=== PATIENT | female | born 1995 | race Caucasian/White ===

== ENCOUNTER 2016-12-29 21:25 | Emergency (ER) | payer OTHER ==
[~2016-12-29] VITALS: Ht 160 cm; Wt 103.6 kg
[2016-12-29 21:28] VITALS: TEMP 36.7; Ht 160 cm; Wt 103.6 kg
[2016-12-29] MEDS ORDERED: ACET-1256 PO (21:35)
[2016-12-29] MEDS ORDERED: NORCO 5/325MG HOME PACK PO ONE (22:30)
[2016-12-29] MEDS ORDERED: CLOTRIMAZOLE 1% CR 15 GM TUBE EXT ONE (22:30)
--- NOTE | 2016-12-29 22:36 | EMERGENCY ROOM VISIT NOTE ---
History First contact with patient: 21:31 Chief Complaint: EAR PAIN Stated Complaint: CANT HEAR OUT EARS History of Present Illness The patient is a 21 year old female who presents to the Emergency Room with complaints of bilateral ear pain and difficulty hearing. The patient states that she has been having ear problems for a few weeks. She was seen at a walk- in clinic 2 weeks ago and given an antibiotic and ear drops. She states that she used them but had continued symptoms. She was again seen by the walk-in clinic 2 days ago and told that she had mold in her ears and was scheduled for an appointment with ENT. They did not put her on any other medications. She's been taking Tylenol and Advil without relief. She rates her discomfort a 10/ 10. She reports difficulty hearing in both of the ears. She denies any fevers/ chills or sore throat. Review of Systems A complete 10 point review of systems was reviewed with the patient with pertinent positives and negatives as per history of present illness. All else were negative. Social History Smoking Status: Current Some Day Smoker Current/Historical Medications Scheduled PRN Acetaminophen (Tylenol), 1,000 MG PO DIRECTED PRN for Pain Physical Exam Vital Signs Date Time Temp Pulse Resp B/P (MAP) Pulse Ox O2 Delivery O2 Flow Rate FiO2 12/29/16 22:47 77 18 110/74 97 12/29/16 21:28 36.7 88 18 112/75 96 Room Air Physical Exam VITALS: Vitals are noted on the nurse's note and reviewed by myself. Vital signs stable. GENERAL: This is a 21-year-old female, in no acute distress, nondiaphoretic, well-developed well-nourished. EARS: There is a white, fuzzy material with multiple black specks present in bilateral ear canals. This is consistent with fungal infection. EYES: Pupils equal round and reactive to light and accommodation. Conjunctivae without injection, sclerae without icterus. NOSE: Patent, turbinates without inflammation or discharge. MOUTH: Mucous membranes moist. Tonsils are not enlarged. Pharynx without erythema or exudate. NECK: Supple without nuchal rigidity. No lymphadenopathy. NEURO: Patient was alert and oriented to person place and time. Medical Decision & Procedures Medications Administered Medications (Trade) Dose Ordered Sig/Hernando Route Start Time Stop Time Status Last Admin Dose Admin Clotrimazole (Lotrimin 1% Crm) 1 appln NOW ONCE EXT 12/29/16 22:30 12/29/16 22:31 DC 12/29/16 22:33 1 APPLN Acetaminophen/ Hydrocodone Bitart (Marston 5/325mg Home Pack) 1 homepack UD ONCE PO 12/29/16 22:30 12/29/16 22:31 DC 12/29/16 22:46 1 HOMEPACK Medical Decision Differential diagnosis includes otitis media, otitis externa, otomycosis, eustachian tube dysfunction, among others. The patient was evaluated as above. Her physical exam is consistent with bilateral otomycosis. She has an upcoming appointment with ENT and they feel that they are better suited to clean the ear canals. The patient was given clotrimazole cream to apply to the ear canals twice daily until she see them. She was complaining of pain and was given a home pack of Marston for pain until she is able to see ENT. She verbalized understanding of my assessment and treatment plan and was discharged home in good condition. Medication Reconcilliation Current Medication List: was personally reviewed by me Blood Pressure Screening Patient's blood pressure: Normal blood pressure Impression Primary Impression: Otomycosis Departure Information Dispostion Home / Self-Care Condition GOOD Referrals Soha Dawson, C.R.N.P. (PCP) Patient Instructions My [facility] Additional Instructions Apply the clotrimazole cream to the ear canals with a Q-tip twice daily. You have been given Marston to be used for pain control. Take 1-2 tablets every 4 -6 hours as needed for pain. This is a narcotic medication. You cannot drive or consume alcohol while on this medicine. This medicine should only be used for pain that cannot be controlled with [id number]-[id number] pain medicines. For pain control, you can use the following dtie-zbt-qcdlmty medicines (if >12 yo): - Regular strength (325mg/tab) Tylenol (acetaminophen) 2 tabs every 4-6 hours as needed. Do not exceed 12 tablets in a 24 hour period. Avoid taking more than 4 grams (4000 mg) of Tylenol per day. This includes any other sources of acetaminophen you may take on a regular basis. - Regular strength (200 mg/tab) Advil (ibuprofen) 1-2 tabs every 4-6 hours as needed. Do not exceed a dose of 3200 mg per day. Follow-up with ENT on Saturday as scheduled.
[2016-12-29 22:47] VITALS: BP 110/74; PULSE 77; O2SAT 97
== END 2016-12-29 22:48 | disposition home or self-care (01) ==
LOC: C.EDB 21:26 → C.EDD 22:48
DX: B36.9 Superficial mycosis, unspecified (principal); H62.40 Otitis externa in other diseases classified elsewhere, unspecified ear; F17.210 Nicotine dependence, cigarettes, uncomplicated

== ENCOUNTER → 2017-01-01 | Outpatient (CLI) | payer OTHER ==
[~2017-01-01] MED LIST: ACET-1256 PO
== END | disposition home or self-care (01) ==
LOC: C.LABSPEC 12:31
PROVIDERS: ATTEND Nurse Practitioner
DX: R31.9 Hematuria, unspecified (principal)

== ENCOUNTER 2017-09-17 20:10 | Emergency (ER) | payer SELFPAY ==
[~2017-09-17] VITALS: Ht 160 cm; Wt 114.8 kg
[2017-09-17 20:26] VITALS: TEMP 36.8; Ht 160 cm; Wt 114.8 kg
[2017-09-17] MEDS ORDERED: AMOXICILLIN 500 MG CAP PO STA (21:50)
[2017-09-17] MEDS ORDERED: AMOXICILLIN 250 MG CAP PO STA (21:50)
[2017-09-17] MEDS ORDERED: AMX500 PO (21:53)
--- NOTE | 2017-09-17 21:55 | EMERGENCY ROOM VISIT NOTE ---
History First contact with patient: 20:37 Chief Complaint: EAR PAIN Stated Complaint: EAR/HEAD PAIN History of Present Illness The patient is a 21 year old female who presents to the Emergency Room via private vehicle with complaints of "ears/head pain". The patient states that she has a history of ear troubles. She states that last year she was seen for otitis externa and was given eardrops at that time and this progressed then to a fungal infection in the ear. She states that this prompted her to visit an ear nose and throat doctor. She states that recently, she has been experiencing right-sided ear pain for the past few days and now has progressed also to the left ear. She describes the pain as continuous, she rates the pain as an 8/10. She also notes decreased hearing. There is minimal tenderness and dizziness. She states that it progressed to the left ear beginning today. There is no nausea, vomiting, fevers or chills. She states that on Saturday she had a fever of 102F. She points to the inner ear as a location of pain as well as just behind the ear. This spares the mastoid. She denies any recent antibiotics, myringotomy tube recently. She notes that she uses Q-tips. Review of Systems A complete 6-point Review of Systems was discussed with the patient, with pertinent positives and negatives listed in the History of Present Illness. All remaining Review of Systems questions can be considered negative unless otherwise specified. Past Medical/Surgical History Fungal otitis externa Family History Noncontributory. Social History Smoking Status: Current Some Day Smoker Patient lives locally. Current/Historical Medications Scheduled Amoxicillin (Amoxicillin), 500 MG PO TID Scheduled PRN Acetaminophen (Tylenol), 1,000 MG PO DIRECTED PRN for Pain Physical Exam Vital Signs Date Time Temp Pulse Resp B/P (MAP) Pulse Ox O2 Delivery O2 Flow Rate FiO2 09/17/17 22:12 84 22 126/69 98 09/17/17 20:26 36.8 86 20 152/82 98 Room Air Physical Exam VITAL SIGNS - Vital signs and nursing notes were reviewed. Stable. Afebrile. GENERAL -21-year-old female appearing her stated age who is in no acute distress. Communicates well with provider and answers questions appropriately. SKIN - Without rashes. No meningeal or petechial rash. The skin overlying the ears under overlying the mastoid region is unremarkable bilaterally. HEAD - NC/AT. EYES - PERRL with EOMI bilaterally. Sclera anicteric. EARS - No deformities of external structures noted on gross examination bilaterally. There is pain elicited with palpation of the tragus bilaterally. External auditory canals without discharge or otorrhea. The ear canals bilaterally are erythematous and slightly down bilaterally are slightly bulging. They are slightly erythematous. No rupture. No evidence of fungal infection. No cerumen impaction. There is only a minimal amount of dependent cerumen in the ear canals which I do not suspect to be significant. NOSE - Midline and without cyanosis. No epistaxis or purulent drainage noted. MOUTH/OROPHARYNX - Without perioral cyanosis. Buccal mucosa pink and moist and without leukoplakia. Tongue midline with equal elevation of palate bilaterally. No tonsillar hypertrophy, erythema, or exudates noted. [] dentition noted. NECK - Neck with FROM. Supple to palpation. No lymphadenopathy noted.. No nuchal rigidity. Medical Decision & Procedures Medications Administered Medications (Trade) Dose Ordered Sig/Hernando Route Start Time Stop Time Status Last Admin Dose Admin Amoxicillin (Amoxil Cap) 500 mg NOW STAT PO 09/17/17 21:50 09/17/17 21:51 DC 09/17/17 22:12 500 MG Amoxicillin (Amoxil Cap) 500 mg NOW STAT PO 09/17/17 21:50 09/17/17 21:51 DC 09/17/17 22:12 500 MG Medical Decision Patient was seen and evaluated as above in room D5. Review was performed of nursing notes and vital signs. After obtaining a thorough history and physical examination the above work up was performed. She presents to us today with bilateral ear pain. She is nontoxic on exam. On exam there is evidence of bilateral otitis externa. There is also what appears to be beginning otitis media. She was offered eardrops for the otitis externa but declined noting that she had poor outcome in the past. She notes that she will use the oral antibiotics. She will be given amoxicillin. She is to follow with ear nose and throat secondary to history for further evaluation and management or return with worsening. The patient was educated upon management, had questions answered prior to discharge, and was discharged home in good condition. In the evaluation and treatment of this patient the following differential diagnoses were entertained: Otitis media, externa, fungal infection, TM rupture , effusion, eustachian tube dysfunction, among others. Impression Primary Impression: Acute pain of both ears Departure Information Dispostion Home / Self-Care Condition GOOD Prescriptions Amoxicillin (Amoxicillin) 500 Mg Cap 500 MG PO TID for 9 Days, #27 TABS Prov: Arron Martinez PA-C 09/17/17 Referrals Soha Dawson C.R.N.P. (PCP) Jarrett Hager M.D. Patient Instructions My [facility] Additional Instructions You have been treated in the Emergency Department for an Outer Ear Infection ( Otitis Externa) and inner ear infection. You were prescribed Amoxicillin to be taken every 8 hours. This is an antibiotic. Stop this medication and contact a medical provider if you were to develop any significant adverse side effects including: wheezing, shortness of breath, passing out, vomiting, or a diffuse rash. Always take antibiotics as directed and COMPLETE the ENTIRE course regardless of the improvement of your symptoms. For pain and fever control, you can use the following lbci-vtp-chitdzz medicines (if >12 yo): - Regular strength (325mg/tab) Tylenol (acetaminophen) 2 tabs every 4-6 hours as needed. Do not exceed 12 tablets in a 24 hour period. Avoid taking more than 3 grams (3000 mg) of Tylenol per day. This includes any other sources of acetaminophen you may take on a regular basis. - Regular strength (200 mg/tab) Advil (ibuprofen) 1-2 tabs every 4-6 hours as needed. Do not exceed a dose of 3200 mg per day. You should follow-up with your Primary Care Provider from today's Emergency Department visit. Please call ear nose and throat to schedule follow-up. Return to the emergency department if you develop the following symptoms despite treatment course outlined above: headache, fever, intractable pain, increased redness, swelling, or purulent discharge.
[2017-09-17 22:12] VITALS: BP 126/69; PULSE 84; O2SAT 98
== END 2017-09-17 22:13 | disposition home or self-care (01) ==
LOC: C.EDB 20:11 → C.EDD 22:13
DX: H92.03 Otalgia, bilateral (principal); R51 Headache

== ENCOUNTER 2017-09-24 14:35 | Emergency (ER) | payer OTHER ==
[~2017-09-24] VITALS: Ht 160 cm; Wt 115.0 kg
[~2017-09-24 14:35] MED LIST changes: +AMX500 PO
[2017-09-24 14:48] VITALS: BP 119/70; PULSE 91; TEMP 36.8; O2SAT 99; Ht 160 cm; Wt 115.0 kg
--- NOTE | 2017-09-24 15:06 | EMERGENCY ROOM VISIT NOTE ---
ED Visit Note First contact with patient: 14:51 CHIEF COMPLAINT: Worsening right ear pain. HISTORY OF PRESENT ILLNESS: This 21-year-old female presents to the ER with chief complaint of worsening right ear pain with pain surrounding her entire ear. The patient states that she was seen here 1 week ago and was placed on amoxicillin for bilateral ear pain. Patient denies any other upper respiratory symptoms. The patient states that she has difficulty hearing out of her right ear. She states the pain kept her up last night. She states that in the past she has used antibiotic drops in her ear and it gave her a fungal infection. REVIEW OF SYSTEMS: 6 system review was performed and was negative unless stated otherwise in history of present illness. PMH: The patient is healthy; there is no significant medical or surgical history. SOCIAL HISTORY: Patient admits to smoking but denies any alcohol use. PHYSICAL EXAM: Vital Signs: Were reviewed reviewed Nurse's notes. GENERAL: 21- year-old female appears in no acute distress. MENTAL Status: Alert and oriented 3. EARS: Left tragus and auricle nontender to palpation. Canals clear. TMs with good light reflex. Right tragus and auricle very tender to palpation. Preauricular lymphadenopathy noted. the Canal with edema and erythema but able to visualize the TM without erythema or fluid level. Mastoids are nontender to palpation bilaterally without any associated erythema. DIAGNOSIS: Acute right otitis externa DISCHARGE INSTRUCTIONS & TREATMENT: Keep your ear dry except for the eardrops for the next week. Cortisporin otic drops, 4 in the ear canal 4 times a day for 5 - 7 days until the pain and swelling are gone. Voltaren 75 mg twice daily for 10 days. If symptoms persist or worsen, follow-up with your family doctor. Current/Historical Medications Scheduled Amoxicillin (Amoxicillin), 500 MG PO TID Scheduled PRN Acetaminophen (Tylenol), 1,000 MG PO DIRECTED PRN for Pain Allergies Coded Allergies: Azithromycin (Verified Allergy, Unknown, RASH, 09/17/17) Vital Signs Date Time Temp Pulse Resp B/P (MAP) Pulse Ox O2 Delivery O2 Flow Rate FiO2 09/24/17 14:48 36.8 91 20 119/70 99 Room Air Departure Information Referrals Soha Dawson, C.R.N.P. (PCP) Patient Instructions [facility]
[2017-09-24] MEDS ORDERED: DICL75TA2 PO (15:10)
[2017-09-24] MEDS ORDERED: NEOM1SUS21 OT (15:10)
[2017-09-24] MEDS ORDERED: IBUPROFEN 600 MG TAB ONE (15:18)
== END 2017-09-24 15:20 | disposition home or self-care (01) ==
LOC: C.EDB 14:37 → C.EDD 15:20
DX: H60.501 Unspecified acute noninfective otitis externa, right ear (principal); F17.200 Nicotine dependence, unspecified, uncomplicated; Z88.8 Allergy status to other drugs, medicaments and biological substances